=== PATIENT | female | born 1995 | race Caucasian/White ===

== ENCOUNTER → 2017-01-25 | Outpatient (CLI) | payer BC ==
--- NOTE | 2017-01-25 10:09 | REP ---
Left foot series: Four views. History: Pain. Injury to the instep region. Findings: Four views of the left foot demonstrate overall normal mineralization. Bones, joints, and soft tissues are radiographically unremarkable. No fracture or subluxation is seen. Impression: Negative left foot radiographs. Signed by Melchor Helms MD 01/25/2017 10:00 A
== END ==
LOC: M WUC 09:40
PROVIDERS: ATTEND Physician Assistant
DX: M79.672 Pain in left foot (principal)